=== PATIENT | female | born 1970 | race Two or more races ===

== ENCOUNTER 2025-04-19 09:53 | Emergency (ER) | payer MEDICAID ==
[~2025-04-19] VITALS: Ht 167.6 cm; Wt 72.6 kg
[2025-04-19] MEDS ORDERED: NAPR-1164 PO (10:22)
[2025-04-19] MEDS ORDERED: ACETAMINOPHEN ES 500 MG TABLET ONE (10:25)
[2025-04-19] MEDS ORDERED: KETOROLAC TROMETHAMINE 15 MG/ML VIAL ONE (10:25)
[2025-04-19] MEDS: KETOROLAC TROMETHAMINE 15 MG/ML VIAL IM ONE (10:30)
[2025-04-19] MEDS: ACETAMINOPHEN ES 500 MG TABLET PO ONE (10:30)
[2025-04-19 10:39] VITALS: BP 123/80; TEMP 98.8; O2SAT 98
== END 2025-04-19 10:40 | disposition home or self-care (01) ==
LOC: ER 10:01
DX: S29.012A Strain of muscle and tendon of back wall of thorax, initial encounter (principal); S39.012A Strain of muscle, fascia and tendon of lower back, initial encounter; X50.0XXA Overexertion from strenuous movement or load, initial encounter; Y93.89 Activity, other specified; Y92.89 Other specified places as the place of occurrence of the external cause; Y99.8 Other external cause status
CPT/HCPCS: 99283; 96372; J1885